=== PATIENT | female | born 1970 | race Caucasian/White ===

== ENCOUNTER 2016-12-23 09:19 | Emergency (ER) | payer BC ==
[~2016-12-23] VITALS: Ht 154.9 cm; Wt 61.2 kg
[2016-12-23] MEDS ORDERED: ATARAX10 MG PO (09:44)
[2016-12-23] MEDS ORDERED: SYNTHROID25 MCG PO (09:44)
== END 2016-12-23 10:15 | disposition short-term general hospital (02) ==
LOC: ER 09:19
DX: J10.1 Influenza due to other identified influenza virus with other respiratory manifestations (principal); Z79.899 Other long term (current) drug therapy; Z88.0 Allergy status to penicillin; Z88.2 Allergy status to sulfonamides; Z91.040 Latex allergy status; Z88.8 Allergy status to other drugs, medicaments and biological substances